=== PATIENT | male | born 1945 | race Caucasian/White ===

== ENCOUNTER 2016-09-30 16:09 | Emergency (ER) | payer MEDICARE, OTHER ==
[2016-09-30 16:55] VITALS: BP 145/88
[2016-09-30] MEDS ORDERED: Sulfamethoxazole/Trimethoprim 800-160 MG Tab PO ONE (17:30)
--- NOTE | 2016-10-01 13:13 | ER ---
DATE SEEN: 09/30/2016 The patient was seen at 1640. CHIEF COMPLAINT: Probable urinary tract infection. HISTORY OF PRESENT ILLNESS: The patient notes the last time he had urinary tract infection was approximately 2 years ago. He thinks it is related to a diverticulum that has been diagnosed in his bladder. This morning, he had aches in his muscles and has had mild back ache. As the day went on, it got slightly worse. He denies fever. He notes he has no pain with sitting, but standing, he has 7 to 8 suprapubic discomfort. He can pee. His stream is decreased. He thinks he has had urinary tract infection for the past 2 days. He has prostatism. He takes finasteride for his prostatism. Has hypertension and takes metoprolol, Lasix, and also potassium supplements and warfarin for anticoagulants. Previous CABG, two-vessel disease, bypass. He continues to work as a owner. He is and never smoked. His weight is 232 pounds, and he has plans to go to the hospital sometime later this year to have his left knee surgery, it was injured in 1982 and he has progressively increasing discomfort in the left knee. He was disappointed they took the vein grafts from the left lower leg. He has no pedal edema. No new leg pain. No shortness of breath. REVIEW OF SYSTEMS: Otherwise negative. ALLERGIES: Levofloxacin causes a rash. His states at one time, he had extra tablets of levofloxacin "lying around," and he would take it for any little thing. Consequently, finally it caught up to him and he is allergic to Levaquin (quinolones). PHYSICAL EXAMINATION: VITAL SIGNS: Blood pressure 150/86, repeat 145/88. Heart rate 78, respirations 18, oxygen saturation 94% on room air. Temperature 36.3 degrees centigrade, 105.2 kilos with a BMI of 32.4 kilos/m2. GENERAL: Alert man, slightly decreased hearing, he is attended by his . HEENT: PERRLA intact. Pharynx without abnormality. NECK: Supple. No thyromegaly or masses. LUNGS: Clear to auscultation without rales, rhonchi, or wheezes. HEART: S1 and S2. No irregular rate and rhythm. No murmur. ABDOMEN: Soft, mild suprapubic discomfort, otherwise no pain. RECTAL/PROSTATE: Not performed. GROIN: Without abnormality. LABORATORY STUDIES: White count 7200, PMNs 57, lymphs 31, monos 9. Hemoglobin 13.3. Urinalysis small leukocyte esterase, few squamous epithelial cells, moderate bacteria, urine culture pending. PLAN: Treat with Septra DS 1 b.i.d., total for 10 tablets dispensed. Follow up with doctor in next 24 to 48 hours if markedly worse, otherwise in 5 to 7 days. DIAGNOSES: 1. Urinary tract infection, probably. 2. Status post coronary artery bypass, two-vessel disease. No suggestion of myocardial infarction, chest pain. 3. Hypertension, treated. 4. Chronic obstructive pulmonary diseased from grain dust exposure. 5. Obesity, 232 pounds. 6. Prostatism - bladder outlet obstruction. 7. Left knee pain. Plan is further surgical evaluation at [facility] this 2016. 8. Allergic to Levaquin, has had a rash to Levaquin. 9. Documented diverticulum of the bladder, possible source is urinary tract infection, recurrent urinary tract infection. 10.Umbilical hernia with surgical repair above the umbilicus. /[id number] EVELINE/SAM
== END 2016-09-30 17:49 | disposition home or self-care (01) ==
LOC: FB.ED 16:09
DX: N40.1 Benign prostatic hyperplasia with lower urinary tract symptoms (principal); N13.8 Other obstructive and reflux uropathy; J44.9 Chronic obstructive pulmonary disease, unspecified; E66.9 Obesity, unspecified; M25.562 Pain in left knee; K42.9 Umbilical hernia without obstruction or gangrene; Z88.1 Allergy status to other antibiotic agents; Z95.1 Presence of aortocoronary bypass graft; Z98.890 Other specified postprocedural states
CPT/HCPCS: 36415; 81001; 85025; 87086; 87088; 87186; 99283; A9270